=== PATIENT | female | born 1950 | race Caucasian/White ===

== ENCOUNTER 2020-12-28 10:07 | Inpatient (IN) ==
[2020-12-28] MEDS ORDERED: Isovue-370 500 ML BOTTLE IVP ONE (10:19)
[2020-12-28 10:28] LABS: Hemoglobin 13.1 g/dL (11.5-15.4); Mean Corpuscular HGB Conc 32.8 g/dL (31.6-35.5); Mean Corpuscular Hemoglobin 28.6 pg (28.0-33.3); Mean Corpuscular Volume 87.3 fL (83.0-100.0); Mean Platelet Volume 8.5 fL (9.4-12.4); Platelet Count 111 K/mcL (140-400); Red Blood Count 4.58 M/mcL (3.82-4.97); Red Cell Distribution Width 12.9 % (11.5-14.5); White Blood Count 6.6 K/mcL (4.3-11.1)
[2020-12-28 10:36] LABS: INR 0.9; Prothrombin Time 10.6 Seconds (9.4-12.1)
[2020-12-28 10:38] LABS: Activated Partial Thrombo Time 27.6 Seconds (26.0-36.0)
[2020-12-28 10:46] LABS: BUN/Creatinine Ratio 14 (6-26); Blood Urea Nitrogen 12 mg/dL (8-23); Calcium 9.2 mg/dL (8.6-10.3); Carbon Dioxide 25 mEq/L (23-29); Chloride 103 mEq/L (98-107); Glucose 130 mg/dL (70-105); Osmolality,Calculated 288 (280-300); Sodium 138 mEq/L (136-145); eGFR For African Americans > 60 (> 60); eGFR For Non-African Americans > 60 (> 60)
[2020-12-28 10:47] LABS: Troponin I < 0.03 ng/mL (< 0.04)
[2020-12-28] MEDS ORDERED: Aspirin 325 MG TABLET PO ONE (11:40)
[2020-12-28 11:52] LABS: Bilirubin,Urine Negative (Negative); Blood,Urine Negative (Negative); Clarity,Urine Clear (Clear); Color,Urine Colorless (Yellow); Glucose,Urine (UA) Normal (Normal); Ketones,Urine Negative (Negative); Leukocyte Esterase,Urine Negative (Negative); Nitrite,Urine Negative (Negative); Protein,Urine Negative (Neg-Trace); Specific Gravity,Urine > 1.030 (1.010-1.025); Urobilinogen,Urine Normal (Normal)
[2020-12-28] MEDS ORDERED: Ondansetron 4 MG/2 ML VIAL IVP PRN (13:08)
[2020-12-28] MEDS ORDERED: Naloxone 0.4 MG/ML INJ IVP PRN (13:08)
[2020-12-28] MEDS ORDERED: Perflutren Lipid Microsphere 1.3 ML in 0.9 % Sodium Chloride 8.7 ML IVP PRN (13:18)
[2020-12-28] MEDS ORDERED: D5% in Water 1,000 ML IVC PRN (13:55)
[2020-12-28] MEDS ORDERED: Dextrose Gel 15 GM/37.5 ML TUBE PO PRN ×2 (13:55)
[2020-12-28] MEDS ORDERED: *HR* Dextrose 50 % in Water (Vial) 50 ML VIAL IVP PRN (13:55)
[2020-12-28] MEDS: Insulin LISPRO 300 UNITS/3 ML VIAL SUBQ SCH (17:17)
[2020-12-28] MEDS: *HR* Heparin 5,000 UNIT/ML VIAL SQ SCH (18:37)
[2020-12-29 00:10] LABS: Bilirubin,Urine Negative (Negative); Blood,Urine Negative (Negative); Clarity,Urine Clear (Clear); Color,Urine Light-Yellow (Yellow); Glucose,Urine (UA) Normal (Normal); Ketones,Urine Negative (Negative); Leukocyte Esterase,Urine Negative (Negative); Nitrite,Urine Negative (Negative); PH,Urine 6.5 pH Units (5.0-8.0); Protein,Urine Negative (Neg-Trace); Specific Gravity,Urine 1.012 (1.010-1.025); Urobilinogen,Urine Normal (Normal)
[2020-12-29] MEDS: *HR* Heparin 5,000 UNIT/ML VIAL SQ SCH ×2 (05:07→17:44)
[2020-12-29 05:55] LABS: Alanine Aminotransferase 13 Units/L (7-52); Albumin 4.3 g/dL (3.5-5.7); Albumin/Globulin Ratio 1.8 (1.1-2.2); Alkaline Phosphatase 51 Units/L (34-104); Aspartate Amino Transferase 17 Units/L (13-39); BUN/Creatinine Ratio 16 (6-26); Bilirubin,Total 1.1 mg/dL (0.3-1.0); Blood Urea Nitrogen 12 mg/dL (8-23); Calcium 9.3 mg/dL (8.6-10.3); Carbon Dioxide 25 mEq/L (23-29); Chloride 102 mEq/L (98-107); Chol/HDL Ratio 3.8 (0-4.9); Cholesterol 138 mg/dL (< 200); Globulin 2.4 g/dL (2.4-3.5); Glucose 105 mg/dL (70-105); HDL Cholesterol 36 mg/dL (40-59); Osmolality,Calculated 284 (280-300); Potassium 3.8 mEq/L (3.5-5.1); Sodium 137 mEq/L (136-145); Total Protein 6.7 g/dL (6.4-8.9); Triglycerides 449 mg/dL (< 150); eGFR For African Americans > 60 (> 60); eGFR For Non-African Americans > 60 (> 60)
[2020-12-29 06:11] LABS: LDL Cholesterol,Direct 51 mg/dL (75-193)
[2020-12-29 07:40] LABS: Estimated Average Glucose 128 mg/dl; Hemoglobin A1C 6.1 %
[2020-12-29] MEDS: Insulin LISPRO 300 UNITS/3 ML VIAL SUBQ SCH ×3 (08:18→17:42)
[2020-12-29] MEDS: Aspirin 81 MG TAB.CHEW PO SCH (08:18)
[2020-12-29] MEDS: atenoloL 25 MG TABLET PO SCH (11:38)
[2020-12-29] MEDS ORDERED: Acetaminophen 325 MG TABLET PO PRN (23:50)
[2020-12-30] MEDS: *HR* Heparin 5,000 UNIT/ML VIAL SQ SCH (05:36)
[2020-12-30 07:01] VITALS: BP 144/72
[2020-12-30] MEDS: Aspirin 81 MG TAB.CHEW PO SCH (10:10)
[2020-12-30] MEDS: atenoloL 25 MG TABLET PO SCH (10:10)
[2020-12-30] MEDS: Insulin LISPRO 300 UNITS/3 ML VIAL SUBQ SCH (10:11)
[2020-12-30] MEDS ORDERED: Valsartan 80 MG TABLET PO SCH (21:00)
== END 2020-12-30 14:31 | DRG 65 ==
LOC: EMEROOARM 10:07 → 3BNU 10:07 → SUATTDRO 13:46 → 3BNU 14:59
PROVIDERS: ADMIT Internal Medicine; ATTEND Internal Medicine